=== PATIENT | male | born 2005 | race Hispanic/Latino ===

== ENCOUNTER 2024-09-21 22:21 | Emergency (ER) | payer OTHER ==
[2024-09-21] MEDS ORDERED: Fluorescein Opthalmic Strip ONE (22:36)
[2024-09-21] MEDS ORDERED: Tetracaine 0.5% PF 4 ML BOT ONE (22:37)
== END 2024-09-21 23:42 | disposition home or self-care (01) ==
LOC: CSHERS 22:21
DX: S05.91XA Unspecified injury of right eye and orbit, initial encounter (principal); X58.XXXA Exposure to other specified factors, initial encounter
CPT/HCPCS: 99283